=== PATIENT | female | born 1995 | race Caucasian/White ===

== ENCOUNTER 2022-09-12 13:19 | Emergency (ER) | payer BC ==
[~2022-09-12] VITALS: Ht 152.4 cm; Wt 58.1 kg
[2022-09-12 13:26] VITALS: BP 119/69; TEMP 98.1; O2SAT 98
== END 2022-09-12 14:18 | disposition home or self-care (01) ==
LOC: ER 13:26
DX: L08.89 Other specified local infections of the skin and subcutaneous tissue (principal); I10 Essential (primary) hypertension
CPT/HCPCS: 73590-TC